=== PATIENT | female | born 1980 | race Caucasian/White ===

== ENCOUNTER 2017-07-09 10:51 | Emergency (ER) | payer SELFPAY ==
[2017-07-09 11:10] VITALS: BP 112/72; PULSE 78; TEMP 98.6; BMI 27.6
--- NOTE | 2017-07-09 13:22 | PDOC ---
History of Present Illness - General History Source: Patient Exam Limitations: No Limitations - History of Present Illness Initial Comments: 07/09/17 14:31 Pt is a 36 yo F with no PMHx who presents to the ED with cough, sore throat and body aches for the past week. Patient reports intermittent dry cough with associated chest congestion. Patient has been taking Nyquil, theraflu, with no relief of her symptoms. Patient reports sore throat has resolved however reports to the ED for further evaluation. Patient denies fever/chills, ear pain , nausea, vomiting diarrhea. <Loraine Bolivar - Last Filed: 07/09/17 14:37> <Juhi Bernard - Last Filed: 07/09/17 19:48> - General Chief Complaint: Cold Symptoms Stated Complaint: SORE THROAT, BODYACHES Time Seen by Provider: 07/09/17 13:18 Past History <Loraine Bolivar - Last Filed: 07/09/17 14:37> - Past Medical History COPD: No - Suicide/Smoking/Psychosocial Hx Smoking History: Never smoked Information on smoking cessation initiated: No Hx Alcohol Use: No Drug/Substance Use Hx: No Substance Use Type: None <JoanaJuhi - Last Filed: 07/09/17 19:48> - Past Medical History Allergies/Adverse Reactions: Allergies Allergy/AdvReac Type Severity Reaction Status Date / Time No Known Allergies Allergy Verified 07/09/17 11:02 Home Medications: Ambulatory Orders Albuterol Sulfate Inhaler - [Ventolin HFA Inhaler -] 1 - 2 inh PO Q4H #1 inhaler 07/09/17 Ibuprofen 800 mg PO TID #30 tablet 07/09/17 Review of Systems - Review of Systems Able to Perform ROS?: Yes Comments:: 07/09/17 14:31 CONSTITUTIONAL: +Body aches. Absent: fever, no chills, no fatigue EYES: Absent: visual changes ENT: +sore throat Absent: ear pain, CARDIOVASCULAR: Absent: chest pain, no palpitations RESPIRATORY: +cough. Absent: cough, no SOB GI: Absent: abdominal pain, no nausea, no vomiting, no constipation, no diarrhea GENITOURINARY: Absent: dysuria, no frequency, no hematuria MUSCULOSKELETAL: Absent: back pain, no arthralgia, no myalgia SKIN: Absent: rash NEURO: Absent: headache <OsmelLoraine - Last Filed: 07/09/17 14:37> *Physical Exam - Vital Signs Last Vital Signs Temp Pulse Resp BP Pulse Ox 98.6 F 78 16 112/72 100 07/09/17 11:03 07/09/17 11:03 07/09/17 11:03 07/09/17 11:03 07/09/17 11:03 - Physical Exam Comments: 07/09/17 14:32 GENERAL: Well-appearing, well-nourished. No apparent distress. HEENT: Normocephalic, atraumatic. PERRL, EOM intact. CARDIOVASCULAR: Normal S1, S2. Regular rate and rhythm. PULMONARY: +Bilateral scattered coarse lung sounds. ABDOMEN: Soft, non-distended, non-tender. EXTREMITIES: Normal ROM in all four extremities. No gross deformities. SKIN: Warm, dry. No rash NEUROLOGICAL: No focal neurological deficits. <OsmelLoraine - Last Filed: 07/09/17 14:37> - Vital Signs Last Vital Signs Temp Pulse Resp BP Pulse Ox 98.6 F 78 16 112/72 100 07/09/17 11:03 07/09/17 11:03 07/09/17 11:03 07/09/17 11:03 07/09/17 11:03 <Juhi Bernard - Last Filed: 07/09/17 19:48> ED Treatment Course - Medications Given in the ED: ED Medications Discontinued Medications Generic Name Dose Route Start Last Admin Trade Name Freq PRN Reason Stop Dose Admin Albuterol/Ipratropium 1 amp 07/09/17 13:57 07/09/17 14:04 Duoneb - NEB 07/09/17 13:58 1 amp ONCE ONE Administration Ibuprofen 800 mg 07/09/17 13:57 07/09/17 14:04 Motrin - PO 07/09/17 13:58 800 mg ONCE ONE Administration <Loraine Bolivar - Last Filed: 07/09/17 14:37> Medical Decision Making - Medical Decision Making 07/09/17 14:32 Juhi Bernard PA: The scribe's documentation has been prepared under my direction and personally reviewed by me in its entirety. I confirm that the note above accurately reflects all work, treatment, procedures, and medical decision making performed by me. <Loraine Bolivar - Last Filed: 07/09/17 14:37> - Medical Decision Making 07/09/17 14:46 Pt is a 36 yo F with no PMHx who presents to the ED with cough, sore throat and body aches for the past week. Exam is benign except for scattered wheezing. Will give duoneb at this time and re-evaluate. Most likely a viral syndrome. VSS , afebrile. 07/09/16 15:24 Repeat lung exam clear. Will d/c home with albuterol and motrin. Pt. understands all d/c instructions and all questions were answered. <Juhi Bernard - Last Filed: 07/09/17 19:48> *DC/Admit/Observation/Transfer - Attestations Scribe Attestion: 07/09/17 14:32 Documentation prepared by Loraine Bolivar, acting as medical records administrator for Juhi RANGEL. <Loraien Bolivar - Last Filed: 07/09/17 14:37> - Discharge Dispostion Admit: No <Juhi Bernard - Last Filed: 07/09/17 19:48> Diagnosis at time of Disposition: Upper respiratory infection Qualifiers: URI type: unspecified URI Qualified Code(s): J06.9 - Acute upper respiratory infection, unspecified - Discharge Dispostion Disposition: HOME Condition at time of disposition: Good - Prescriptions Prescriptions: Albuterol Sulfate Inhaler - [Ventolin HFA Inhaler -] 1 - 2 inh PO Q4H #1 inhaler Ibuprofen 800 mg PO TID #30 tablet - Referrals Referrals: Harish Llanes MD [Staff Physician] - - Patient Instructions Printed Discharge Instructions: DI for Viral Upper Respiratory Infection -- Adult Additional Instructions: You have a cold. Please take ibuprofen 800 mg 3 times a day to help with her symptoms. Please take your albuterol inhaler every 4 hours to help with her cough. He may continue to take your Delsym as well. Drink plenty of fluids. Follow-up with primary care doctor this week. Return to the emergency department if you have worsening fevers, chills, shortness breath, difficult breathing or any changes in your symptoms. - Post Discharge Activity Forms/Work/School Notes: Back to Work
[2017-07-09] MEDS ORDERED: IBUPROFEN 400 MG TABLET (FP) PO ONE (13:57)
[2017-07-09] MEDS ORDERED: ALBUTEROL SO4 2.5/IPRATROPIUM 0.5 INH SOL 3 ML VIAL.NEB. NEB ONE (13:57)
== END 2017-07-09 15:01 | disposition home or self-care (01) ==
LOC: JER 10:51 → JERFT 10:51
DX: J06.9 Acute upper respiratory infection, unspecified (principal)
CPT/HCPCS: 99281-25

== ENCOUNTER 2022-03-24 23:51 | Emergency (ER) | payer OTHER ==
[2022-03-24 23:59] VITALS: BP 112/73; PULSE 85; RESP 18; TEMP 97.8; BMI 26.5
[2022-03-25] MEDS ORDERED: DIPHTH,PERTUSS(ACELL),TET 0.5 ML DISP.SYRIN IM ONE ×2 (01:23→02:06)
[2022-03-25] MEDS ORDERED: AMOX TR/POT CLAV 875MG/125MG TABLETS (FP) PO ONE (01:23)
[2022-03-25] MEDS ORDERED: AMOX TR/POT CLAV 875MG/125MG TABLETS (FP) ONE (02:06)
== END 2022-03-25 02:14 | disposition home or self-care (01) ==
LOC: JER 23:51
PROC: 3E0234Z Introduction of Serum, Toxoid and Vaccine into Muscle, Percutaneous Approach (ICD-10-PCS; principal; 2022-03-24)
DX: S01.551A Open bite of lip, initial encounter (principal); W54.0XXA Bitten by dog, initial encounter
CPT/HCPCS: 90715; 99284-25